=== PATIENT | female | born 1950 | race Caucasian/White ===

== ENCOUNTER 2020-07-04 09:31 | Inpatient (IN) | payer OTHER ==
[~2020-07-04] VITALS: Ht 149.9 cm; Wt 55.4 kg
[~2020-07-04 09:31] MED LIST: ALBIPROI INH; DOXY100 PO; HYDGUAL120 PO; PRED20 PO
[2020-07-04] MEDS ORDERED: ATOR80 PO (09:50)
[2020-07-04] MEDS ORDERED: Prinivil10 MG PO (09:50)
[2020-07-04] MEDS ORDERED: ALBU90OI INH (09:50)
[2020-07-04] MEDS ORDERED: ESCI10 PO (09:51)
[2020-07-04 09:56] LABS: BASOPHILS ABSOLUTE AUTO 0.12 K/mm3 (0.00-0.23); BASOPHILS PERCENT AUTO 1 % (0-2); EOSINOPHILS ABSOLUTE AUTO 0.34 K/mm3 (0.00-0.68); EOSINOPHILS PERCENT AUTO 3 % (0-6); Hematocrit 44.8 % (33.0-51.0); Hemoglobin 14.1 g/dL (11.5-16.0); IMMATURE GRAN ABSOLUTE AUTO 0.04 K/mm3 (0.00-0.10); IMMATURE GRAN PERCENT AUTO 0 % (0-1); LYMPHOCYTES ABSOLUTE AUTO 5.11 K/mm3 (0.84-5.20); LYMPHOCYTES PERCENT AUTO 51 % (21-46); MONOCYTES ABSOLUTE AUTO 0.43 K/mm3 (0.16-1.47); MONOCYTES PERCENT AUTO 4 % (4-13); Mean Corpuscular HGB 31.1 pg (26.0-34.0); Mean Corpuscular HGB Conc 31.5 g/dL (31.5-36.5); Mean Corpuscular Volume 99 fL (80-100); Mean Platelet Volume 10.6 fL (9.1-12.4); NEUTROPHILS ABSOLUTE AUTO 4.05 K/mm3 (1.96-9.15); NEUTROPHILS PERCENT AUTO 40 % (41-73); Platelet Count 269 K/mm3 (150-400); RDW Coefficient Variation 12.8 % (11.7-14.2); RDW Standard Deviation 46.8 fL (35.1-46.3); Red Blood Cell Count 4.53 M/mm3 (3.80-5.20); White Blood Cell Count 10.09 K/mm3 (4.00-11.30)
[2020-07-04 10:11] LABS: International Normalized Ratio 0.97; Prothrombin Time Results 10.4 Sec (9.7-11.5)
[2020-07-04 10:14] LABS: Alanine Aminotransfer (ALT/SGP 34 U/L (12-78); Albumin, Blood 3.4 g/dL (3.4-5.0); Albumin/Globulin Ratio 0.9 (0.8-1.8); Alk Phos 67 U/L (50-136); Anion Gap 17 mmol/L (6-16); Aspartate Aminotrans (AST/SGOT 37 U/L (12-37); Bilirubin, Total 0.6 mg/dL (0.1-1.0); Blood Urea Nitrogen 16 mg/dL (8-24); Bun/Creatinine Ratio 15.4 (12.0-20.0); CO2, Blood 14 mmol/L (21-32); Calcium, Blood 8.9 mg/dL (8.5-10.1); Chloride, Blood 110 mmol/L (98-108); Creatinine, Blood 1.04 mg/dL (0.40-1.00); Globulin, Blood 3.8 g/dL (2.2-4.0); Glomerular Filtration Rate 56 (60-); Glucose, Blood 324 mg/dL (70-99); Magnesium, Blood 2.3 mg/dL (1.6-2.4); Sodium, Blood 141 mmol/L (136-145); Total Protein, Blood 7.2 g/dL (6.4-8.2); Troponin I <0.015 ng/mL (0.000-0.040)
--- NOTE | 2020-07-04 11:03 | NUR ---
REVIEWED PT CHART AWAITING PT ARIVAL TO ICU 2 TO ASSUME CARE OF PT AT THIS TIME
--- NOTE | 2020-07-04 13:00 | NUR ---
ECHO: PT RECEIVING ECHO AT THIS TIME. 2 FAMILY MEMBERS IN THE ROOM TO VISIT THE PT. EXPLAINED THE VISITING POLICY AND STRESSED TOMORROW PT WILL ONLY BE ALLOWED ONE VISITOR PER DAY.
--- NOTE | 2020-07-04 13:42 | NUR ---
Echocardiogram completed.
--- NOTE | 2020-07-04 15:27 | NUR ---
2ML OF AIR RELEASED FROM TR BAND.
--- NOTE | 2020-07-04 16:27 | NUR ---
2ML OF AIR REMOVED FROM TR BAND
--- NOTE | 2020-07-04 18:07 | NUR ---
1ML OF AIR REMOVED FROM TR BAND NO S/S OF BLEEDING.
--- NOTE | 2020-07-04 18:18 | NUR ---
BLOOD SUGARS AND SLIDING SCALE: CALLED DR NAVARRO ABOUT PT BLOOD SUGAR IN THE 300'S UPON ARIVAL TO THE ER AND NOT BEING DIABETIC. RECEIVED ORDERS FOR AN A1C IN THE MORNING, ALONG WITH AC/HS GLUCOSE CHECKS WITH A LOW S/S. UPON CHECKING PT GLUCOSE WAS NOTED TO BE 88. WILL CONTINUE TO MONIOTOR AND ASSESS FURTHER
--- NOTE | 2020-07-04 18:37 | NUR ---
4 ML OF AIR REMOVED. ALL AIR IS OUT OF THE TR BAND AT THIS TIME. TR BAND REMAINING IN PLACE TO SEE IF ANY BLEEDING OCCURS. WILL CONTINUE TO MONITOR AND ASSESS FURTHER.
--- NOTE | 2020-07-04 20:11 | NUR ---
INITAL SHIFT ASSESSMENT BEDSIDE REPORT RECIEVED FROM OFF GOING RN. PT'S DAUGHTER AND GRANDDAUGHTER IN ROOM. DAUGHTER IS VERY EXPRESSIVE THAT SHE DOES NOT LIKE [facility] AND WOULD LIKE TO GET HER MOM OUT OF HERE VERY SOON. SHE IS VERY UPSET WITH CARE BEING DONE AND DOES NOT TRUST US. PT IS TRYING TO CALM HER DAUGHTER. PT'S FAMILY DID LEAVE AND PT APPOLIGIZED STATING HER DAUGHTER IS A WORRIER. PT'S TR SITE WAS CHECKED WITH OFF GOING RN. RIGHT WRIST IS SOFT WITH MINIMAL BRUISING. WILL RE-PLACE BAND WITH DRESSING. ARM BOARD IN PLACE. PT HAS TWO PERIPHERAL IV'S PATENT WITH NO S/S OF INFECTION. PT DOES HAVE AMIODARONE GTT RUNNING AT 0.5 ORDERED. SEE EMAR FOR ALL ADMINISTERED MEDICATIONS. PT DENIES ANY CHEST PAIN AT THIS TIME OR SOB. PT IS A HEAVY SMOKER BUT ON RA WITH NO SOB NOTED AT REST. STATES SHE DOES HAVE SOME SOB WITH ACTIVITY. VITALS ARE STABLE AT THIS TIME. PT'S OVERALL ASSESSMENT IS BENIGN. SHE DEMONSTRATED USE OF CALL LIGHT. WILL CON'T TO MONITOR AND KEEP PT SAFE T/O SHIFT.
--- NOTE | 2020-07-05 05:26 | NUR ---
SHIFT SUMMARY PT CON'T TO BE STABLE WITH NO CHANGES FROM BASELINE. SHE CON'T TO DENY ANY CHEST PAIN. ACCESS SITE TO RIGHT WRIST CDI DRESSING. HOWEVER SHE DID HAVE SOME OOZING. ARM BOARD CON'T TO BE IN PLACE. HEP GTT AND AMIO GTT'S RUNNING ORDERED. SEE ICU FLOWSHEET OR EMAR. PT DOES HAVE AN ELEVATED BP T/O SHIFT. WILL NOTIFY ONCOMING RN TO PASS ON TO MD. PT HAS BEEN UP TO TOILET T/O SHIFT WITH NO ISSUES. SHE IS A SBA. OVERALL VERY PLESANT AND COOPERATIVE WITH HER CARE AT THIS TIME. WILL CON'T TO MONITOR AND KEEP PT SAFE TILL REPORT TO ONCOMING RN.
[2020-07-05 06:02] LABS: BASOPHILS ABSOLUTE AUTO 0.05 K/mm3 (0.00-0.23); BASOPHILS PERCENT AUTO 0 % (0-2); EOSINOPHILS ABSOLUTE AUTO 0.03 K/mm3 (0.00-0.68); EOSINOPHILS PERCENT AUTO 0 % (0-6); Hematocrit 36.5 % (33.0-51.0); Hemoglobin 12.1 g/dL (11.5-16.0); IMMATURE GRAN ABSOLUTE AUTO 0.02 K/mm3 (0.00-0.10); IMMATURE GRAN PERCENT AUTO 0 % (0-1); LYMPHOCYTES PERCENT AUTO 21 % (21-46); MONOCYTES ABSOLUTE AUTO 0.89 K/mm3 (0.16-1.47); MONOCYTES PERCENT AUTO 7 % (4-13); Mean Corpuscular HGB 31.2 pg (26.0-34.0); Mean Corpuscular HGB Conc 33.2 g/dL (31.5-36.5); Mean Corpuscular Volume 94 fL (80-100); Mean Platelet Volume 10.4 fL (9.1-12.4); NEUTROPHILS ABSOLUTE AUTO 8.74 K/mm3 (1.96-9.15); NEUTROPHILS PERCENT AUTO 71 % (41-73); Platelet Count 198 K/mm3 (150-400); RDW Coefficient Variation 13.1 % (11.7-14.2); RDW Standard Deviation 44.5 fL (35.1-46.3); Red Blood Cell Count 3.88 M/mm3 (3.80-5.20); White Blood Cell Count 12.33 K/mm3 (4.00-11.30)
[2020-07-05 06:20] LABS: Creatine Kinase MB 4.5 ng/mL (0.0-3.6); Creatine Kinase MB Index 4.8 (0.0-4.0); Troponin I 0.477 ng/mL (0.000-0.040)
--- NOTE | 2020-07-05 09:08 | NUR ---
PT SLEEPING BUT EASILY AROUSED AND PLEASANT. PT DENIES CP, SOB, TR SITE DISTRESS OR ANY DIZZINESS. PT VS NOTED. HEPARIN GTT D/C AT 0900 AND 12 LEAD EKG COMPLETED WTIH DR MACHADO AWARE OF QTC. WILL REPEAT AT 1600 PER VERBAL ORDER.
--- NOTE | 2020-07-05 17:59 | NUR ---
PT AND FAMILY QUESTIONS ANSWERED AND ALL ARE LESS ANXIOUS. FAMILY CONFERANCE ARRANGE AFTER [address] Tang[address] ONE DAILY VISITOR PLUS ONE OTHER FAMILY AFTER 1700 WAS THE ARRANGEMENTS, AND CLEARED [facility] RISK ANALYSTMARILU GERONIMO. PT CONT TO REMAIN ASYMPTOMATIC. R TR SITE CLEANED AND RE-DSGED, SITE IS CLEAR OF PROBLEMS. SBP REMAINS SOMEWHAT ELEVATED BUT DAUGHTER AND PT HAVE BEEN IN ROOM LAUGHING AND TALKING, WILL REPORT AND FOLLOW. PT HAS BEEN UP SEVERAL TIMES TODAY W/O S/S AND HAS REMAINED IN NRS AND SB ONLY, NO VT THIS SHIFT. PT AND FAMILY TO DESIDE ABOUT ICD AFTER CONSULT WITH DR Tang TOMORROW.
--- NOTE | 2020-07-05 20:45 | NUR ---
INITAL SHIFT ASSESSMENT PT IS RESTING IN ROOM LAYING ON RIGHT SIDE IN BED. SHE WOKE EASILY TO VERBAL STIMULI. PT DENIES ANY PAIN OR DISCOMFORT. SHE IS THANKFUL TO BE GETTING CARE AND LOTS OF SLEEP. PT VERBALIZES UNDERSTANDING OF HER HEART CONDITION AND WHY SHE NEEDS TO STAY IN THE HOSPITAL LONGER. COOPERTIVE AND VERY PLESANT WITH THIS RN'S CARE. PT'S VITALS ARE STABLE AT THIS TIME. UPSCALE SECURITY OFFICER AWARE OF HER ELEVATED BP. PT DENIES ANY SOB AND OXYGEN SATS ARE WNL. PT IS NOT SOB AT REST OR WHEN UP TO USE TOILET. TR ACCESS SITE TO RIGHT RADIAL WRIST IS SOFT AND NON TENDER. CDI DRESSING IN PLACE WELL ARM BOARD. PT IS FOLLOWING RESTRICTIONS TO WRIST. TWO PERIPHERAL IV'S NOTED. BOTH FLUSHED WITH CDI DRESSINGS. CALL LIGHT IN REACH. PT WAS ABLE TO TAKE NIGHT MEDS WITH NO ISSUES. WILL CON'T TO MONITOR AND KEEP PT SAFE T/O REMAINDER OF SHIFT.
[2020-07-06 03:34] LABS: Hematocrit 39.6 % (33.0-51.0); Hemoglobin 12.7 g/dL (11.5-16.0); Mean Corpuscular HGB 30.3 pg (26.0-34.0); Mean Corpuscular HGB Conc 32.1 g/dL (31.5-36.5); Mean Corpuscular Volume 95 fL (80-100); Mean Platelet Volume 10.2 fL (9.1-12.4); Platelet Count 206 K/mm3 (150-400); RDW Coefficient Variation 12.9 % (11.7-14.2); RDW Standard Deviation 44.8 fL (35.1-46.3); Red Blood Cell Count 4.19 M/mm3 (3.80-5.20); White Blood Cell Count 10.38 K/mm3 (4.00-11.30)
[2020-07-06 03:52] LABS: Anion Gap 5 mmol/L (6-16); Blood Urea Nitrogen 14 mg/dL (8-24); Bun/Creatinine Ratio 17.5 (12.0-20.0); CO2, Blood 24 mmol/L (21-32); Calcium, Blood 8.5 mg/dL (8.5-10.1); Chloride, Blood 114 mmol/L (98-108); Glomerular Filtration Rate >60 (60-); Glucose, Blood 89 mg/dL (70-99); Potassium, Blood 3.8 mmol/L (3.5-5.5); Sodium, Blood 143 mmol/L (136-145); Troponin I 0.333 ng/mL (0.000-0.040)
[2020-07-06 03:55] LABS: BASOPHILS PERCENT MAN 2 % (0-2); EOSINOPHILS PERCENT MAN 2 % (0-6); LYMPHOCYTES ABSOLUTE MAN 2.69 K/mm3 (0.84-5.20); LYMPHOCYTES PERCENT MAN 26 % (21-46); MONOCYTES ABSOLUTE MAN 0.51 K/mm3 (0.16-1.47); MONOCYTES PERCENT MAN 5 % (4-13); NEUTROPHILS ABSOLUTE MAN 6.74 K/mm3 (1.96-9.15); SEG NEUTROPHILS PERCENT MAN 65 % (41-73); TOTAL CELLS COUNTED 100
--- NOTE | 2020-07-06 05:17 | NUR ---
SHIFT SUMMARY PT CON'T TO BE STABLE WITH NO CHANGES FROM BASELINE. SHE CON'T TO STATE THAT SHE DOES NOT HAVE ANY COMPLAINTS OR CHEST PAIN. PT HAS BEEN UP TO TOILET WITH NO ISSUES NO SOB. 12 LEAD EKG WAS DONE THIS AM AND IS ON CHART. WILL CON'T TO MONITOR AND KEEP PT SAFE TILL REPORT TO ONCOMING RN. CALL LIGHT IN REACH.
--- NOTE | 2020-07-06 16:00 | NUR ---
REASSESSMENT NG OUT HAS SLOWED, PLACEMENT CHECKED AND SLIGHT RESITANCE WHEN INITIALLY INJECTED WITH AIR WAS NOTED. AFTER AIR FLUSH, NG WAS ABLE TO EASILY FLUSH/DRAW. PLACED BACK TO LIS PER DR CRAIG'S SETTINGS. PT REPORTS ABD PAIN WITH PALPITATION. PT WAS PLACED ON CPAP THIS AFTERNOON AND HAS BEEN MAINTAINING SPO2. SLIGHT LEAK AROUND MASK NOTED DUE TO NG TUBE. MONITOR SHOWS PT TO BE IN SINUS RHYTHM. LEVOPHED CONITINUES TO INFUSE TO MAINTAIN BLOOD PRESSURE, NO RECENT TITRATIONS NEEDED.
--- NOTE | 2020-07-06 16:48 | NUR ---
REASSESSMENT PT CONTINUES TO REMAIN CHESTPAIN FREE, ON ROOM AIR. RIGHT RADIAL SITE C/D/I NO HEMATOMA. PT HAS BEEN RESTING THIS AFTERNOON. BP'S MORE ELEVATED, WILL DISCUSS WITH DR WHEN THEY COME FOR CARE CONFERENCE WITH FAMILY/PT AT 1700. PT'S FAMILY CURRENTLY AT BEDSIDE VISITING WITH PT.
--- NOTE | 2020-07-06 18:46 | NUR ---
SHIFT SUMMARY NO CHEST PAIN REPORTED BY PT TODAY. PT'S BP HAS BEEN ELEVATED, THIS EVENING DR CLARK ADJUSTED BP MEDS. AFTER CARE CONFERENCE IT WAS DECIDED TO HAVE AICD PLACED TOMORROW. MONITOR HAS SHOWN PT TO BE SINUS CHANI/RHYTHM. PT REMAINS ON ROOM AIR. OTHER VITALS HAVE BEEN STABLE. RIGHT RADIAL ACCESS SITE IS C/D/I NO HEMATOMA.
--- NOTE | 2020-07-06 20:04 | NUR ---
PATIENT BACK IN ROOM FROM SHOWER. RIGHT WRIST RADIAL SITE SOFT NO SWELLING SEEN, SLIGHTLY TENDER TO TOUCH. ARM BOARD REMAINS IN PLACE. IV TO LEFT FA LEAKING AND PAINFUL, SITE DC'D. NO OTHER COMPLAINTS AT THIS TIME.
[2020-07-07 05:21] LABS: Anion Gap 7 mmol/L (6-16); Blood Urea Nitrogen 13 mg/dL (8-24); Bun/Creatinine Ratio 16.6 (12.0-20.0); CO2, Blood 23 mmol/L (21-32); Calcium, Blood 8.4 mg/dL (8.5-10.1); Chloride, Blood 113 mmol/L (98-108); Creatinine, Blood 0.78 mg/dL (0.40-1.00); Glomerular Filtration Rate >60 (60-); Glucose, Blood 90 mg/dL (70-99); Potassium, Blood 3.6 mmol/L (3.5-5.5); Sodium, Blood 143 mmol/L (136-145)
[2020-07-07 05:46] LABS: Hemoglobin 13.3 g/dL (11.5-16.0); Mean Corpuscular HGB Conc 31.7 g/dL (31.5-36.5); Mean Corpuscular Volume 98 fL (80-100); Mean Platelet Volume 10.5 fL (9.1-12.4); Platelet Count 192 K/mm3 (150-400); RDW Coefficient Variation 12.7 % (11.7-14.2); RDW Standard Deviation 45.4 fL (35.1-46.3); Red Blood Cell Count 4.29 M/mm3 (3.80-5.20); White Blood Cell Count 9.26 K/mm3 (4.00-11.30)
--- NOTE | 2020-07-07 06:28 | NUR ---
PATIENTS FAMILY IN TO SEE PATIENT BEFORE AICD PLACEMENT AND TO TALK WITH DOCTOR BEFORE PROCEDURE.
--- NOTE | 2020-07-07 07:43 | NUR ---
SUMMARY PATIENT SLEEPING OFF AND ON T/O THE NIGHT. MONITOR CONTINUES TO SHOW SINUS CHANI, HAVING TRIPLET OF PVC X1 DURING THE NIGHT. RIGHT RADIAL SITE REMAINS UNCHANGED. UP TO TOILET WITH MIN ASSIST NO C/O PAIN OF SOB. PATIENT WAITING FOR AICD PLACEMENT.
--- NOTE | 2020-07-07 10:59 | NUR ---
PT RESTING IN BED. NO REQUESTS. DR. HERNÁNDEZ CAME IN THIS AM AND DISCUSSED PT'S OPTIONS FOR TREATMENT WITH PT AND FAMILY. PT IS GOING TO OPT FOR AICD PLACEMENT HERE. PT HAS BEEN NPO. NO SIGN OF DISTRESS.
--- NOTE | 2020-07-07 17:51 | NUR ---
SUMMARY PT RESTING IN BED NOW. WAS IN COORDINATOR OF ONLINE PROGRAMS FOR AICD PLACEMENT FROM 1410 TO 1650. HAS PRESSURE DRESSING OVER AICD THAT IS C/D/I. PLACED SLING TO REMIND PT NOT TO LIFT ARM. SCDS PLACED. PT IS TALKING WITH FAMILY, NO DISTRESS. USES CALL LIGHT APPROPRIATELY.
--- NOTE | 2020-07-08 04:37 | NUR ---
SHIFT SUMMARY: PATIENT STATED LEFT CHEST WALL IS VERY UNCOMFORTABLE BUT DOES NOT WANT ANYTHING FOR THE PAIN, VSS, PATIENT ALERT AND RESPONDING APPROPRIATLY, NO OTHER ISSUES NOTED.
--- NOTE | 2020-07-08 07:12 | NUR ---
ASSUMED CARE: RECEIVED REPORT FROM WILMA RN. PT LYING IN BED UPON ENTERING THE ROOM ABLE TO MOVE HERSELF AROUND IN THE BED FROM SIDE TO SIDE. PT STATES TENDERNESS TO PACER SITE. SITE APPEARS TO BE PUFFY AND VERAFIED WITH WILMA RN SITE DOES NOT APPEAR TO BE MORE THAN LAST NIGHT. MEDICATED PT WITH TYLONEL PER ORDERS. PACER BEING INTERROGATED AT THIS TIME. WILL CONTINUE TO MONITOR AND ASSESS FURTHER.
--- NOTE | 2020-07-08 07:42 | NUR ---
LEAVING FOR X-RAY AT THIS TIME.
[2020-07-08] MEDS ORDERED: Pacerone400 MG PO ×2 (10:51)
[2020-07-08] MEDS ORDERED: CLOP75 PO (10:52)
[2020-07-08] MEDS ORDERED: METO25ER PO (10:52)
--- NOTE | 2020-07-08 11:22 | NUR ---
WALKABOUT: AQUIRED TELEMETRY BOX FOR WALK ABOUT. PT REMAINED STABLE ON HER FEET AND WALKED FROM ICU AROUND TO PCU AND BACK TO HER ROOM. NO EVENTS NOTED WITH AMBULATION. DR NAVARRO NOTIFIED.
--- NOTE | 2020-07-08 11:51 | NUR ---
PRESSURE DRESSING CHANGE: DR VILLA ARRIVED TO THE UNIT AND CHANGED THE DRESSING OVER DEFIBRILLATOR DEVICE.
[2020-07-08] MEDS ORDERED: CEPH500 PO (13:03)
--- NOTE | 2020-07-08 14:32 | NUR ---
DISCHARGE: REVIEWED DISCHARGE INSTRUCTIONS AND NEW MEDICATIONS. DISCHARGE PACKET GIVEN TO PT.
== END 2020-07-08 13:45 | disposition home or self-care (01) | DRG 222 ==
LOC: ER 09:31 → ICUE 10:12 → ICUW 10:12 → ICUE 10:45
PROVIDERS: Emergency Medicine; ADMIT Internal Medicine Interventional Cardiology
PROC: 4A023N7 Measurement of Cardiac Sampling and Pressure, Left Heart, Percutaneous Approach (ICD-10-PCS; 2020-07-04)
PROC: 027037Z Dilation of Coronary Artery, One Artery with Four or More Drug-eluting Intraluminal Devices, Percutaneous Approach (ICD-10-PCS; 2020-07-04)
PROC: B2111ZZ Fluoroscopy of Multiple Coronary Arteries using Low Osmolar Contrast (ICD-10-PCS; 2020-07-04)
PROC: 0JH608Z Insertion of Defibrillator Generator into Chest Subcutaneous Tissue and Fascia, Open Approach (ICD-10-PCS; principal; 2020-07-07)
PROC: 02HK3KZ Insertion of Defibrillator Lead into Right Ventricle, Percutaneous Approach (ICD-10-PCS; 2020-07-07)
PROC: 02H73KZ Insertion of Defibrillator Lead into Left Atrium, Percutaneous Approach (ICD-10-PCS; 2020-07-07)
DX: I21.19 ST elevation (STEMI) myocardial infarction involving other coronary artery of inferior wall (principal); I46.2 Cardiac arrest due to underlying cardiac condition; I47.2 Ventricular tachycardia; I42.9 Cardiomyopathy, unspecified; J44.9 Chronic obstructive pulmonary disease, unspecified; F17.210 Nicotine dependence, cigarettes, uncomplicated; E78.5 Hyperlipidemia, unspecified; I25.10 Atherosclerotic heart disease of native coronary artery without angina pectoris; R73.9 Hyperglycemia, unspecified
CPT/HCPCS: 33249; 36415; 71045; 71046; 80048; 80053; 82550; 82553; 82947; 83036; 83735; 84484; 85007; 85025; 85027; 85347; 85610; 85730; 93005; 93010; 93306; 93458; 96365; 99152; 99153; 99285-25; A9270; A9270-GY; C1721; C1725; C1769; C1781; C1874; C1887; C1894; C1895; C1898; C9600; C9606; G0008; J0282; J0461; J0690; J1644; J2250; J3010; J7030; J7040; J7050; J7060; Q2038; Q9967

== ENCOUNTER 2020-12-21 19:02 | Observation (INO) | payer OTHER ==
[~2020-12-21] VITALS: Ht 149.9 cm; Wt 63.0 kg
[~2020-12-21 19:02] MED LIST changes: +ALBU90OI INH; +CEPH500 PO; +Pacerone400 MG PO
[2020-12-21 19:42] LABS: BASOPHILS ABSOLUTE AUTO 0.09 K/mm3 (0.00-0.23); BASOPHILS PERCENT AUTO 1 % (0-2); EOSINOPHILS ABSOLUTE AUTO 0.48 K/mm3 (0.00-0.68); EOSINOPHILS PERCENT AUTO 5 % (0-6); Hematocrit 38.5 % (33.0-51.0); Hemoglobin 12.7 g/dL (11.5-16.0); IMMATURE GRAN ABSOLUTE AUTO 0.03 K/mm3 (0.00-0.10); IMMATURE GRAN PERCENT AUTO 0 % (0-1); LYMPHOCYTES ABSOLUTE AUTO 4.99 K/mm3 (0.84-5.20); LYMPHOCYTES PERCENT AUTO 51 % (21-46); MONOCYTES ABSOLUTE AUTO 0.88 K/mm3 (0.16-1.47); MONOCYTES PERCENT AUTO 9 % (4-13); Mean Corpuscular HGB 30.8 pg (26.0-34.0); Mean Corpuscular Volume 93 fL (80-100); Mean Platelet Volume 10.3 fL (9.1-12.4); NEUTROPHILS ABSOLUTE AUTO 3.23 K/mm3 (1.96-9.15); NEUTROPHILS PERCENT AUTO 33 % (41-73); Platelet Count 235 K/mm3 (150-400); RDW Standard Deviation 44.5 fL (35.1-46.3); Red Blood Cell Count 4.12 M/mm3 (3.80-5.20)
[2020-12-21 20:05] LABS: Troponin I <0.015 ng/mL (0.000-0.040)
[2020-12-21 20:07] LABS: Alanine Aminotransfer (ALT/SGP 30 U/L (12-78); Albumin, Blood 3.6 g/dL (3.4-5.0); Alk Phos 55 U/L (50-136); Anion Gap 6 mmol/L (6-16); Aspartate Aminotrans (AST/SGOT 21 U/L (12-37); Bilirubin, Total 0.3 mg/dL (0.1-1.0); Blood Urea Nitrogen 23 mg/dL (8-24); CO2, Blood 26 mmol/L (21-32); Calcium, Blood 9.2 mg/dL (8.5-10.1); Chloride, Blood 110 mmol/L (98-108); Creatinine, Blood 1.15 mg/dL (0.40-1.00); Globulin, Blood 3.5 g/dL (2.2-4.0); Glomerular Filtration Rate 50 (60-); Glucose, Blood 93 mg/dL (70-99); Potassium, Blood 3.9 mmol/L (3.5-5.5); Sodium, Blood 142 mmol/L (136-145); Total Protein, Blood 7.1 g/dL (6.4-8.2)
[2020-12-21] MEDS ORDERED: LISI20 PO (20:27)
[2020-12-21] MEDS ORDERED: ESCI10 PO (20:27)
[2020-12-21] MEDS ORDERED: FOSAMAX70 MG PO (20:27)
[2020-12-21] MEDS ORDERED: CLOP75 PO (20:28)
[2020-12-21] MEDS ORDERED: METO25ER PO (20:28)
[2020-12-21] MEDS ORDERED: ATOR40TA PO (20:42)
[2020-12-22 03:35] LABS: BASOPHILS PERCENT AUTO 1 % (0-2); EOSINOPHILS ABSOLUTE AUTO 0.27 K/mm3 (0.00-0.68); EOSINOPHILS PERCENT AUTO 3 % (0-6); Hematocrit 36.2 % (33.0-51.0); IMMATURE GRAN ABSOLUTE AUTO 0.01 K/mm3 (0.00-0.10); IMMATURE GRAN PERCENT AUTO 0 % (0-1); LYMPHOCYTES ABSOLUTE AUTO 3.56 K/mm3 (0.84-5.20); LYMPHOCYTES PERCENT AUTO 39 % (21-46); MONOCYTES ABSOLUTE AUTO 0.82 K/mm3 (0.16-1.47); MONOCYTES PERCENT AUTO 9 % (4-13); Mean Corpuscular HGB 30.9 pg (26.0-34.0); Mean Corpuscular HGB Conc 33.1 g/dL (31.5-36.5); Mean Corpuscular Volume 93 fL (80-100); Mean Platelet Volume 9.7 fL (9.1-12.4); NEUTROPHILS ABSOLUTE AUTO 4.38 K/mm3 (1.96-9.15); NEUTROPHILS PERCENT AUTO 48 % (41-73); Platelet Count 214 K/mm3 (150-400); RDW Standard Deviation 44.4 fL (35.1-46.3); Red Blood Cell Count 3.88 M/mm3 (3.80-5.20); White Blood Cell Count 9.14 K/mm3 (4.00-11.30)
[2020-12-22 03:50] LABS: Bun/Creatinine Ratio 17.9 (12.0-20.0); Calcium, Blood 8.8 mg/dL (8.5-10.1); Creatinine, Blood 1.06 mg/dL (0.40-1.00); Potassium, Blood 4.5 mmol/L (3.5-5.5)
--- NOTE | 2020-12-22 05:30 | NUR ---
SALES CONTRACT ADMINISTRATOR SUMMARY NEW ADMIT FROM THE ED MAYCO. PT CAME IN AFTER HAVING A FALL AT HOME WHILE CARRYING [place] INTO HER HOME AND SOON AFTER HAVING HER DEFIBRILLATOR FIRE. PT AAOX4 AND PLEASANT. DENIES CP, SOB, OR PAIN. NSR ON TELEMETRY AND VITALS HAVE BEEN STABLE. WILL CONTINUE TO MONITOR.
--- NOTE | 2020-12-22 09:26 | NUR ---
CARDIOLOGY CONSULT CALLED TO DR NAVJOT FONTANA, PER DR FONTANA CHECK TO SEE IF PACER WAS INTEROGATED. SPOKE WITH [facility] AND IT WAS INTEROGATED.
[2020-12-22 10:49] LABS: Influenza A, PCR NEGATIVE (NEGATIVE); Influenza B, PCR NEGATIVE (NEGATIVE); Resp Syncytial Virus, PCR NEGATIVE (NEGATIVE); SARS-Cov-2 (COVID-19) PCR, MMC NEGATIVE (NEGATIVE)
--- NOTE | 2020-12-22 17:24 | NUR ---
SHIFT SUMMARY- PT A/OX4, INDEP UP IN ROOM. PT HAS DENIED ANY CHEST PAIN OR OTHER COMPLAINTS T/O THE DAY. LS CLEAR, ON RA. HRR. TELE SR AT 61. CARDIOLOGY CONSULTED AND NEW MEDICATIONS STARTED. POSSIBLE D/C HOME TOMORROW. NO OTHER ACUTE CHANGES THIS SHIFT.
[2020-12-23 05:08] LABS: Hematocrit 39.6 % (33.0-51.0); Hemoglobin 12.8 g/dL (11.5-16.0); Mean Corpuscular HGB 30.4 pg (26.0-34.0); Mean Corpuscular HGB Conc 32.3 g/dL (31.5-36.5); Mean Corpuscular Volume 94 fL (80-100); Platelet Count 241 K/mm3 (150-400); RDW Coefficient Variation 13.2 % (11.7-14.2); RDW Standard Deviation 45.1 fL (35.1-46.3); Red Blood Cell Count 4.21 M/mm3 (3.80-5.20); White Blood Cell Count 8.51 K/mm3 (4.00-11.30)
[2020-12-23 05:37] LABS: Bun/Creatinine Ratio 16.2 (12.0-20.0); Calcium, Blood 8.9 mg/dL (8.5-10.1); Creatinine, Blood 1.17 mg/dL (0.40-1.00); Magnesium, Blood 2.2 mg/dL (1.6-2.4); Phosphorus, Blood 3.9 mg/dL (2.5-4.9); Potassium, Blood 4.5 mmol/L (3.5-5.5); Troponin I 0.051 ng/mL (0.000-0.040)
--- NOTE | 2020-12-23 07:03 | NUR ---
ASSUMED CARE OF PT- BEDSIDE REPORT COMPLETED WITH NIGHT RN VIKI. PT ALERT ORIENTED AND INDEPENDENT IN THE ROOM. PT HERE FOR OBSERVATION AFTER A FALL AT HOME AND AFTER HER DEFIBRILATOR WENT OFF. DEVICE INTERROGATON COMPLETED PER REPORT. NEW MEDS STARTED, PLAN IS FOR DISCHARGE TODAY TROPONINS WERE BUMPED ON ARRIVAL BUT HAVE TRENDED DOWN AGAIN PER REPORT. PT IN BED CALL LIGHT IN REACH, NO S&S OF DISTRESS NOTED AT THE TIME OF SHIFT CHANGE. PLAN IS FOR PT TO DISCHARGE HOME TODAY.
--- NOTE | 2020-12-23 08:06 | NUR ---
SHIFT SUMMARY PT IS A 69 Y/O FEMALE, ADMITTED FOR A DEFIBRILLATOR DISCHARGE FOR EPISODE OF V-TACH. SHE IS A&O X 4, INDEPENDENT IN THE ROOM. PT DENIED ANY C/O CHEST PAIN OR PRESSURE, SOB OR NAUSEA. TELE SHOWED NSR IN THE 60S. VITAL SIGNS STABLE. PT SLEPT WELL THROUGH THE NIGHT. NO ACUTE CHANGES IN PT CONDITION NOTED DURING THE NIGHT. WILL CONTINUE TO MONTIOR AND TREAT PER EMAR UNTIL HAND OFF TO DAY SHIFT RN.
[2020-12-23] MEDS ORDERED: Acetaminophen650 M1 PO (09:33)
[2020-12-23] MEDS ORDERED: ALBU90OI INH (09:34)
[2020-12-23] MEDS ORDERED: PACERONE100 M1 PO (09:35)
[2020-12-23] MEDS ORDERED: RANO500T PO (09:36)
--- NOTE | 2020-12-23 11:10 | NUR ---
CALLED CARDIOLOGY DR FONTANA STATED HE DOES NOT NEED TO SEE THE PT TODAY AND SHE IS CLEARED FOR DISCHARGE FROM HIS STANDPOINT. WILL LET DR MIRANDA KNOW. PT OK TO DC FROM DR MIRANDA WELL.
--- NOTE | 2020-12-23 12:19 | NUR ---
DISCHARGE NOTE- PT WAS GIVEN VERBAL AND WRITTEN DISCHARGE INSTRUCTIONS AND ACKNOWLEDGED UNDERSTANDING OF THEM. MEDS FAXED TO [facility] IN [place] PER PT REQUEST. FOLLOW UP APPOINTMENT SCHEDILED WITH CARDIOLOGY FOR December. RAP ARTIST ON THE CASE STATED HE DID NOT NEED TO SEE THE PT AGAIN TODAY AND SHE WAS OK TO DISCHARGE TODAY. HOSPITALIST IS AWARE OF THIS. PT IS AWARE OF THE FOLLOW UP APPOINTMENTS. PT IV AND TELE WERE DC'D AT THE TIME OF DISCHARGE. PT WAS TAKEN [facility] ESCORT TO THE PT ENTRANCE NO S&S OF DISTRESS NOTED AT THE TIME OF DISCHARGE.
== END 2020-12-23 12:01 | disposition home or self-care (01) ==
LOC: ER 19:02 → MEDS 19:03
PROVIDERS: Family Medicine; Nurse Practitioner Acute Care; Physician Assistant; ADMIT Internal Medicine
DX: I47.2 Ventricular tachycardia (principal); I25.10 Atherosclerotic heart disease of native coronary artery without angina pectoris; I10 Essential (primary) hypertension; I25.2 Old myocardial infarction; E78.5 Hyperlipidemia, unspecified; J43.9 Emphysema, unspecified; F32.9 Major depressive disorder, single episode, unspecified; F41.0 Panic disorder [episodic paroxysmal anxiety]; Z95.810 Presence of automatic (implantable) cardiac defibrillator; Z95.5 Presence of coronary angioplasty implant and graft; Z87.891 Personal history of nicotine dependence; Z79.02 Long term (current) use of antithrombotics/antiplatelets; Z20.822 Contact with and (suspected) exposure to COVID-19
CPT/HCPCS: 0241U; 36415; 71046; 80048; 80053; 83735; 84100; 84484; 85025; 85027; 93005; 93010; 94760; 96372; 99285-25; A9270; G0378; J1650

== ENCOUNTER → 2021-10-24 | Outpatient (CLI) | payer OTHER ==
[~2021-10-24] MED LIST changes: +ATOR40TA PO; +Acetaminophen650 M1 PO; +CLOP75 PO; +ESCI10 PO; +FOSAMAX70 MG PO; +LISI20 PO; +METO25ER PO; +PACERONE100 M1 PO; +RANO500T PO
[2021-10-25 13:30] LABS: Creatinine Urine 67.7 mg/dL (27.00-270.00); Microalbumin, Urine Quant. 6.75 mg/L (0.000-20.000); Protein, Urine Quantitative 11.8 mg/dL (0.0-11.9)
== END | disposition home or self-care (01) ==
LOC: LAB SHORT 22:00
PROVIDERS: Internal Medicine Nephrology
DX: R80.9 Proteinuria, unspecified (principal)
CPT/HCPCS: 81050; 82043; 82570; 84156

== ENCOUNTER 2025-05-28 19:35 | Observation (INO) | payer OTHER ==
[~2025-05-28] VITALS: Ht 149.9 cm; Wt 58.3 kg
[~2025-05-28 19:35] MED LIST changes: +Amiodarone HCl 50 MG / ML 3 ML Amp IV ONE
[2025-05-28] MEDS ORDERED: Ondansetron HCl 2 MG / ML 2ML Vial ONE (20:05)
[2025-05-28] MEDS ORDERED: Amiodarone HCl 450 MG in NS 250 ML IV SCH (20:05)
[2025-05-28] MEDS ORDERED: Amiodarone HCl 50 MG / ML 3 ML Amp IV ONE (20:05)
[2025-05-28 20:08] LABS: Hematocrit 39.4 % (33.0-51.0); Hemoglobin 12.9 g/dL (11.5-16.0); Mean Corpuscular HGB Conc 32.7 g/dL (31.5-36.5); Mean Corpuscular Volume 94 fL (80-100); NRBC ABSOLUTE 0.00 K/mm3 (0.00-0.02); NRBC Auto 0.0 /100 WBC (0.0-0.2); Platelet Count 265 K/mm3 (150-400); RDW Coefficient Variation 13.2 % (11.7-14.2); RDW Standard Deviation 45.2 fL (35.1-46.3)
[2025-05-28] MEDS ORDERED: NS 1,000 ML IV ONE (20:16)
[2025-05-28 20:29] LABS: BASOPHILS ABSOLUTE MAN 0.13 K/mm3 (0.00-0.23); BASOPHILS PERCENT MAN 1 % (0-2); EOSINOPHILS ABSOLUTE MAN 0.40 K/mm3 (0.00-0.68); EOSINOPHILS PERCENT MAN 3 % (0-6); LYMPHOCYTES ABSOLUTE MAN 5.66 K/mm3 (0.84-5.20); LYMPHOCYTES PERCENT MAN 42 % (21-46); MONOCYTES ABSOLUTE MAN 0.94 K/mm3 (0.16-1.47); MONOCYTES PERCENT MAN 7 % (4-13); NEUTROPHILS ABSOLUTE MAN 6.33 K/mm3 (1.96-9.15); SEG NEUTROPHILS PERCENT MAN 47 % (41-73)
[2025-05-28 20:45] LABS: Alanine Aminotransfer (ALT/SGP 23.0 U/L (12-78); Albumin, Blood 3.8 g/dL (3.4-5.0); Albumin/Globulin Ratio 1.1 (0.8-1.8); Anion Gap 12.0 mmol/L (3-11); Aspartate Aminotrans (AST/SGOT 19.0 U/L (12-37); Bilirubin, Total 0.6 mg/dL (0.1-1.0); Blood Urea Nitrogen 32.0 mg/dL (8-24); CO2, Blood 22.0 mmol/L (21-32); Calcium, Blood 9.0 mg/dL (8.5-10.1); Chloride, Blood 109.0 mmol/L (98-108); Creatinine, Blood 1.51 mg/dL (0.40-1.00); Globulin, Blood 3.4 g/dL (2.2-4.0); Glucose, Blood 128.0 mg/dL (70-99); Magnesium, Blood 2.0 mg/dL (1.6-2.4); Potassium, Blood 4.5 mmol/L (3.5-5.5); Sodium, Blood 138.0 mmol/L (136-145); Thyroid Stimulating Hormone 4.74 uIU/mL (0.360-4.800); Total Protein, Blood 7.2 g/dL (6.4-8.2)
[2025-05-28] MEDS ORDERED: Ondansetron HCl 2 MG / ML 2ML Vial IV PRN (22:15)
[2025-05-28 23:45] VITALS: BP 121/92
--- NOTE | 2025-05-29 00:32 | NUR ---
ARRIVAL TO UNIT - REPORT RECEIVED FROM RUBBER CUTTER AND SHAPE CARVER, PT ARRIVES TO PCU 15 AT APPROX 2311. SHE IS A/OX4, FOLLOWS COMMANDS, COOPERATIVE WITH CARE. ABLE TO TRANSFER SELF FROM [facility] TO HOSPITAL BED INDEPENDENTLY. ON CONTINUOUS CARDIAC TELEMETRY. SINUS RHYTHM WITH BBB, HR 70'S-80'S. PT DENIES CHEST PAIN/PRESSURE AT THIS TIME. ENDORSES SOB WITH EXERTION. SHE IS ON ROOM AIR WITH SATS ABOVE 95%. PT INSTRUCTED TO USE CALL LIGHT FOR SBA TO RESTROOM. SKIN IS INTACT. SHE IS CONTINENT OF URINE AND STOOL. DAUGHTER AND GRANDAUGHTER WITH PT AT BEDSIDE.
[2025-05-29 04:19] VITALS: BP 106/64
--- NOTE | 2025-05-29 04:35 | NUR ---
SHIFT SUMMARY - A/OX4, PLEASANT AND COOPERATIVE WITH CARE. DENIES PAIN. FOLLOWS COMMANDS. ON RA, SATS ABOVE 95%. BREATHING IS SHALLOW AND UNLABORED. ON CONTINUOUS CARDIAC TELEMETRY. SINUS RHYTHME WITH BBB. PT ENDORSES SOB WITH EXERTION. PT HAS PACER, INTERROGATED IN ER. PULSES PALPABLE. SHE DENIES CHEST PAIN/PRESSURE. PT INSTRUCTED ON USE OF CALL LIGHT AND TO CALL FOR SBA FOR RESTROOM NEEDS. NO ACUTE EVENTS OVERNIGHT. PT DTR AT BEDSIDE.
[2025-05-29 04:38] LABS: BASOPHILS ABSOLUTE AUTO 0.06 K/mm3 (0.00-0.23); BASOPHILS PERCENT AUTO 1 % (0-2); EOSINOPHILS ABSOLUTE AUTO 0.13 K/mm3 (0.00-0.68); EOSINOPHILS PERCENT AUTO 1 % (0-6); Hematocrit 33.8 % (33.0-51.0); Hemoglobin 11.1 g/dL (11.5-16.0); IMMATURE GRAN ABSOLUTE AUTO 0.05 K/mm3 (0.00-0.10); IMMATURE GRAN PERCENT AUTO 1 % (0-1); LYMPHOCYTES ABSOLUTE AUTO 3.72 K/mm3 (0.84-5.20); LYMPHOCYTES PERCENT AUTO 36 % (21-46); MONOCYTES ABSOLUTE AUTO 0.97 K/mm3 (0.16-1.47); MONOCYTES PERCENT AUTO 9 % (4-13); Mean Corpuscular HGB Conc 32.8 g/dL (31.5-36.5); Mean Corpuscular Volume 95 fL (80-100); NEUTROPHILS ABSOLUTE AUTO 5.53 K/mm3 (1.96-9.15); NEUTROPHILS PERCENT AUTO 53 % (41-73); NRBC ABSOLUTE 0.00 K/mm3 (0.00-0.02); NRBC Auto 0.0 /100 WBC (0.0-0.2); Platelet Count 201 K/mm3 (150-400); RDW Coefficient Variation 13.3 % (11.7-14.2); RDW Standard Deviation 46.3 fL (35.1-46.3)
[2025-05-29 05:03] LABS: Alanine Aminotransfer (ALT/SGP 20.0 U/L (12-78); Albumin, Blood 3.1 g/dL (3.4-5.0); Albumin/Globulin Ratio 1.1 (0.8-1.8); Anion Gap 10.0 mmol/L (3-11); Aspartate Aminotrans (AST/SGOT 22.0 U/L (12-37); Bilirubin, Total 0.5 mg/dL (0.1-1.0); Blood Urea Nitrogen 27.0 mg/dL (8-24); CO2, Blood 22.0 mmol/L (21-32); Calcium, Blood 8.2 mg/dL (8.5-10.1); Chloride, Blood 113.0 mmol/L (98-108); Creatinine, Blood 1.32 mg/dL (0.40-1.00); Globulin, Blood 2.9 g/dL (2.2-4.0); Glucose, Blood 104.0 mg/dL (70-99); Magnesium, Blood 1.9 mg/dL (1.6-2.4); Potassium, Blood 4.4 mmol/L (3.5-5.5); Sodium, Blood 141.0 mmol/L (136-145); Total Protein, Blood 6.0 g/dL (6.4-8.2)
[2025-05-29] MEDS ORDERED: Magnesium Sulf 2 GM/Water 50ML 50 ML IV ONE (07:35)
--- NOTE | 2025-05-29 08:10 | NUR ---
md rounding resident team in rounding with the patient at this time. patient daughter at bedside during this time. md's discussing events that lead up to this and signs and symptoms the patient was feeling prior to this hospitlization. md's went over home medications that patient takes with patient and patient daughter and looked at whats prescribed from [facility].
[2025-05-29] MEDS ORDERED: ELIQUIS2.5 MG PO (08:16)
[2025-05-29 08:25] VITALS: BP 129/88
--- NOTE | 2025-05-29 09:37 | NUR ---
am note this rn assumed care at 0700. vital signs stable tele sinus rhyhm 60s. patient is alert and oriented x4. neuro is intact. patient is able to make needs known and uses call light appropriately. patient denies pain, chest jose/pressure, heart palpitations, or shortness of breath. see shift assessment for further detials. see previous note for md rounding.
--- NOTE | 2025-05-29 10:26 | NUR ---
MD ROUNDING Md Joshi in the room to discuss plan that team of residents discussed. patient daughter listening and expressing concerns in regarding to possibly going home and changes in medication. md joshi discussed this with the patient daugther and patient and informed them the supervisory lifeguard would be by soon. this rn called md sanabria, cardioologist to update and md to be in room soon.
[2025-05-29 11:31] VITALS: BP 105/51
[2025-05-29] MEDS ORDERED: Amiodarone HCl200 MG PO (12:53)
== END 2025-05-29 14:40 | disposition home or self-care (01) ==
LOC: ER 19:35 → PCU 19:36
PROVIDERS: Emergency Medicine; ADMIT Student in an Organized Health Care Education/Training Program
DX: I47.10 Supraventricular tachycardia, unspecified (principal); I48.0 Paroxysmal atrial fibrillation; I11.0 Hypertensive heart disease with heart failure; I50.22 Chronic systolic (congestive) heart failure; I25.10 Atherosclerotic heart disease of native coronary artery without angina pectoris; I25.2 Old myocardial infarction; E78.5 Hyperlipidemia, unspecified; J43.9 Emphysema, unspecified; F41.8 Other specified anxiety disorders; Z95.810 Presence of automatic (implantable) cardiac defibrillator; Z95.5 Presence of coronary angioplasty implant and graft; Z87.891 Personal history of nicotine dependence; Z79.01 Long term (current) use of anticoagulants; Z79.02 Long term (current) use of antithrombotics/antiplatelets; Z79.899 Other long term (current) drug therapy; Z98.51 Tubal ligation status
CPT/HCPCS: 36415; 71045; 80053; 82947; 83735; 83880; 84443; 84484; 85025; 93005; 93010; 96374; 99285-25; A9270; G0378; J0153; J0282; J2405; J3475; J7030; J7050